=== PATIENT | female | born 1965 | race Caucasian/White ===

== ENCOUNTER 2018-05-17 07:24 | Emergency (ER) | payer OTHER ==
[2018-05-17 07:48] VITALS: BP 116/74
--- NOTE | 2018-05-17 07:51 | UC ---
Lower Extremity/Ankle HPI - HPI Summary HPI Summary: Anastasia Crawley, scribed for attending Krisitn Avitia MD. Pt is a 53 y/o F who presents to [facility] c/o L pinky toe pain and swelling s/p trauma. Pt reports that last night at approximately 2100 she was getting on a boat and his her L 5th toe on something. Reports hearing a crack at the time of injury. She has been applying ice to the toe and confirms that she can move it. On triage, pain is severe ranked 9/10 and does not radiate up the foot. No prior injuries to this toe before and she cannot bear full weight on the foot. - History of Current Complaint Chief Complaint: UCLowerExtremity Stated Complaint: TOE INJURY Time Seen by Provider: 05/17/18 07:38 Hx Obtained From: Patient Onset/Duration: Still Present Severity Currently: Severe Pain Intensity: 9 Pain Scale Used: 0-10 Numeric Aggravating Factor(s): Nothing Alleviating Factor(s): Nothing Able to Bear Weight: No - Cannot bear full weight - Allergies/Home Medications Allergies/Adverse Reactions: Allergies Allergy/AdvReac Type Severity Reaction Status Date / Time No Known Allergies Allergy Verified 05/17/18 07:40 Home Medications: Home Medications Escitalopram Oxalate [Lexapro 20 mg] 1 tab PO DAILY 05/17/18 [History Confirmed 05/17/18] PMH/Surg Hx/FS Hx/Imm Hx - Additional Past Medical History Additional PMH: NEGATIVE PMHx: DM, HTN, COPD, Asthma - Surgical History Surgical History: None - Family History Known Family History: Negative: Diabetes - Social History Occupation: Employed Full-time Lives: With Family Alcohol Use: None Substance Use Type: None Smoking Status (MU): Never Smoked Tobacco Review of Systems Constitutional: Negative Skin: Other - L 5th toe swelling Eyes: Negative ENT: Negative Respiratory: Negative Cardiovascular: Negative Gastrointestinal: Negative Genitourinary: Negative Motor: Negative Neurovascular: Negative Musculoskeletal: Other: - L 5th toe pain Neurological: Negative Psychological: Negative All Other Systems Reviewed And Are Negative: Yes Physical Exam - Summary Physical Exam Summary: Appearance: Well-appearing, Well-nourished Skin: Warm Eyes: Normal ENT: Normal Neck: Supple, nontender Respiratory: Clear to auscultation Cardiovascular: Regular rate, regular rhythm. Normal S1, S2. Musculoskeletal: Mild swelling and ecchymosis over the dorsum of the left 5th toe, tenderness over the proximal phalanx and distal portion of metatarsal Neurological: Normal, A&Ox3 Psychiatric: Normal General: No acute distress Triage Information Reviewed: Yes Vital Signs: Initial Vital Signs Temp 97.1 F 05/17/18 07:42 Pulse 55 05/17/18 07:42 Resp 16 05/17/18 07:42 BP 116/74 05/17/18 07:42 Pulse Ox 100 05/17/18 07:42 Vital Signs Reviewed: Yes Diagnostics - Radiology Toe XR Xray Interpretation: Positive (See Comments) - Suggestion of a minimally impacted fracture at the distal metaphysis of the proximal phalanx. Normal articular alignment. Soft tissue swelling about the fifth toe. Physician reviewed this report. Radiology Interpretation Completed By: Radiologist Re-Evaluation - Re-Evaluation First Eval Re-Evaluation Time: 08:44 Comment: Discussed XR results and advised follow up with ortho or skirt maker. Instructed to elevate and ice without full weight bearing. Offered crutches which the pt declined. Lower Extremity Course/Dx - Differential Dx/Diagnosis Provider Diagnoses: Closed fracture of the proximal phalanx of the left 5th toe Discharge - Sign-Out/Discharge Documenting (check all that apply): Patient Departure - Discharge - Discharge Plan Condition: Stable Disposition: HOME Patient Education Materials: Toe Fracture (ED) Referrals: Maurice Sotomayor DPM [Doctor of Podiatric Medicine] - Additional Instructions: follow up with podiatry within one week - Billing Disposition and Condition Condition: STABLE Disposition: Home
--- NOTE | 2018-05-17 08:30 | RAD ---
INDICATION: Stubbed LEFT fifth toe. Pain and edema. COMPARISON: No relevant prior exams available on the [facility] PACS for comparison. TECHNIQUE: AP, lateral, and oblique views LEFT 5th toe. REPORT AND IMPRESSION: #. Suggestion of a minimally impacted fracture at the distal metaphysis of the proximal phalanx. Normal articular alignment. Soft tissue swelling about the fifth toe.
== END 2018-05-17 09:05 | disposition home or self-care (01) ==
LOC: UCEAST 07:24
DX: S92.912A Unspecified fracture of left toe(s), initial encounter for closed fracture (principal); W22.8XXA Striking against or struck by other objects, initial encounter; Y93.23 Activity, snow (alpine) (downhill) skiing, snowboarding, sledding, tobogganing and snow tubing; Y92.814 Boat as the place of occurrence of the external cause
CPT/HCPCS: 99213; G0463